=== PATIENT | male | born 1950 | race Caucasian/White ===

== ENCOUNTER 2020-03-04 06:57 | Day surgery (SDC) | payer MEDICARE ==
[2020-02-27 10:02] LABS: BASOPHILS % (AUTO) 0.8 % (0.0-5.0); EOSINOPHILS % (AUTO) 2.9 % (0.0-8.0); HEMATOCRIT 48.4 % (42-54); LYMPHOCYTES % (AUTO) 39.5 % (21.0-51.0); MEAN CORPUSCULAR HEMOGLOBIN 31.9 pg (27.0-33.0); MEAN CORPUSCULAR HGB CONC 33.7 g/dL (32.0-36.0); MEAN CORPUSCULAR VOLUME 94.7 fL (79-99); MONOCYTES % (AUTO) 17.6 % (3.0-13.0); PLATELET COUNT (AUTO) 172 K/uL (130-400); RED BLOOD CELL COUNT(AUTO) 5.11 MIL/uL (4.50-6.20)
[2020-02-27 10:12] LABS: CREATININE 0.9 mg/dL (0.5-1.5); POTASSIUM 4.8 mmol/L (3.5-5.1)
[2020-03-01 11:02] VITALS: BP 156/77
[~2020-03-04] VITALS: Ht 182.9 cm; Wt 95.1 kg
[2020-03-04] VITALS (18 sets, daily range): BP systolic 119–150; BP diastolic 58–79
[2020-03-04] MEDS: CEFAZOLIN SODIUM 1 GM VIAL IVP SCH ×2 (06:00→08:35)
[~2020-03-04 06:57] MED LIST: HYDR25TA PO; LISI10TA24 PO; MONT-39 PO
[2020-03-04] MEDS ORDERED: LACTATED RINGERS 1000ML 1,000 ML IV ONE (07:17)
[2020-03-04] MEDS ORDERED: BUPIVACAINE/PF 0.25% 30ML VIAL IJ ONE (07:55)
[2020-03-04] MEDS ORDERED: PHENYLEPHRINE HCL 10 MG/ML 1ML VIAL IV ONE (08:20)
[2020-03-04] MEDS ORDERED: MIDAZOLAM HCL 1 MG/ML 2ML VIAL ONE (08:20)
[2020-03-04] MEDS ORDERED: SUCCINYLCHOLINE CHLORIDE 20 MG/ML 10 ML VIAL ONE (08:20)
[2020-03-04] MEDS ORDERED: LIDOCAINE PF 100MG/5ML (2%) SYRINGE 5ML ONE (08:20)
[2020-03-04] MEDS ORDERED: FENTANYL CITRATE PF 50 MCG/1 ML 2ML VIAL ONE (08:21)
[2020-03-04] MEDS ORDERED: PROPOFOL 10 MG/ML 20ML VIAL IV ONE (08:21)
[2020-03-04] MEDS ORDERED: ROCURONIUM 10MG/1ML SYR 10 MG/ML ML ONE (08:21)
[2020-03-04] MEDS ORDERED: EPHEDRINE SULFATE 50 MG/ML AMPULE ONE (08:31)
[2020-03-04] MEDS ORDERED: NEOSTIGMINE 5MG/5ML SYR IV ONE (08:59)
[2020-03-04] MEDS ORDERED: GLYCOPYRROLATE 1 MG/5 ML SYRINGE ONE (08:59)
[2020-03-04] MEDS ORDERED: ONDANSETRON 4MG INJ ONE ×2 (09:17→10:00)
[2020-03-04] MEDS ORDERED: MEPERIDINE-PF 25 MG/ML SYG ONE ×2 (09:55→10:04)
== END 2020-03-04 11:30 | disposition home or self-care (01) ==
LOC: DAH 06:57
PROVIDERS: ATTEND Surgery
DX: K40.90 Unilateral inguinal hernia, without obstruction or gangrene, not specified as recurrent (principal); Z20.822 Contact with and (suspected) exposure to COVID-19; J45.909 Unspecified asthma, uncomplicated; I10 Essential (primary) hypertension; Z79.82 Long term (current) use of aspirin; Z90.89 Acquired absence of other organs; Z98.890 Other specified postprocedural states; Z98.49 Cataract extraction status, unspecified eye; Z80.1 Family history of malignant neoplasm of trachea, bronchus and lung
CPT/HCPCS: 36415; 49505; 80048; 85025; 88302; A4215; A4216; A4221; A4222; A4223; A4452; A4600; A4649; A4663; A6260; C1781; C9803; J0330; J0690; J2001; J2175 ×2; J2250; J2370; J2405 ×2; J2704; J2710; J3010; J3490 ×3; J7030; J7120 ×2; U0003

== ENCOUNTER → 2022-12-15 | Outpatient (CLI) | payer MEDICARE ==
[~2022-12-15] MED LIST changes: +IOHEXOL-350 75 ML VIAL IV ONE
== END | disposition home or self-care (01) ==
LOC: RAH 12:43
PROVIDERS: ATTEND Family Medicine
DX: R22.1 Localized swelling, mass and lump, neck (principal); D48.7 Neoplasm of uncertain behavior of other specified sites
CPT/HCPCS: 70492; Q9967

== ENCOUNTER → 2024-10-25 | Outpatient (CLI) | payer MEDICARE ==
[~2024-10-25] MED LIST changes: -IOHEXOL-350 75 ML VIAL IV ONE
--- NOTE | 2024-10-26 00:04 | HMCIMG ---
EXAMINATION: ULTRASOUND OF THE ABDOMEN WITH COLOR DOPPLER. CLINICAL HISTORY: Right upper quadrant pain. COMPARISON: None. TECHNIQUE: Real-time grayscale ultrasound images of the abdomen. In addition, color Doppler is medically necessary to perform in order to evaluate vascularity and blood flow. FINDINGS: Liver: Bulky in caliber, the right hepatic lobe measures 18.1 cm in the craniocaudal dimension. There is increased echogenicity of the hepatic parenchyma. There is no focal hepatic abnormality or intrahepatic biliary ductal dilatation. There is normal spectral Doppler of the main portal vein. Gallbladder: Within normal limits with normal wall thickness (0.20 cm). No hyperemia or pericholecystic free fluid. There is no cholelithiasis. There is a possible polyp that measures 0.3 x 0.8 cm at the fundus. Common bile duct is normal in caliber, measuring 0.3 cm. Spleen is normal in caliber and measures 11.0 x 3.1 x 3.5 cm in craniocaudal, AP and transverse dimensions respectively. No focal lesions. Pancreas: Normal in caliber and echotexture. No calcification or dilated pancreatic duct. The kidneys are normal in caliber, the right kidney measures 11.1 x 6.1 x 5.8 cm and the left kidney measures 9.9 x 6.3 x 5.9 cm in craniocaudal, AP, and transverse dimensions respectively. There is normal renal cortical thickness, and cortical echogenicity. There is no renal calculus. There is mild bilateral pelvic fullness. The proximal, mid, and distal aspects of abdominal aorta are normal in caliber measuring 2.4 cm, 1.8 cm, and 1.6 cm in the AP dimension respectively. Visualized aspects of the inferior vena cava are unremarkable. IMPRESSION: Hepatomegaly with hepatic steatosis. Possible gallbladder polyp. Recommend MRCP. Mild bilateral pelvic fullness. Recommend CT urography. /[place]
== END | disposition home or self-care (01) ==
LOC: RAH 08:05
PROVIDERS: ATTEND Family Medicine
DX: K76.0 Fatty (change of) liver, not elsewhere classified (principal); R50.9 Fever, unspecified; R10.11 Right upper quadrant pain; R63.0 Anorexia
CPT/HCPCS: 76700

== ENCOUNTER → 2024-11-02 | Outpatient (CLI) | payer MEDICARE ==
[~2024-11-02] MED LIST changes: +IOHEXOL 350 MG/ML 100ML INFUS..BTL IV ONE
--- NOTE | 2024-11-03 06:48 | HMCIMG ---
EXAM: CT Abdomen and Pelvis with and without IV contrast CLINICAL HISTORY: Patient presents with hydronephrosis. TECHNIQUE: Axial computed tomography images of the abdomen and pelvis with and without intravenous contrast. CONTRAST: With and without intravenous contrast. COMPARISON: Ultrasound abdomen dated October 25, 2024. FINDINGS: LUNG BASES: The lung bases are clear. No pleural effusion. LIVER: The liver is enlarged measuring 18.2 cm in craniocaudal span. Multiple hypodense lesions in both lobes, largest measuring 1.1 x 1.3 x 1.5 cm in segment II, concerning for hepatic cysts. GALLBLADDER AND BILE DUCTS: The gallbladder is within normal limits. No radio-opaque gallstones. No biliary ductal dilatation. PANCREAS: Unremarkable. SPLEEN: Unremarkable. ADRENAL GLANDS: Unremarkable. KIDNEYS, URETERS, AND BLADDER: A 0.3 cm calculus is present in the right ureterovesicular junction causing upstream mild right hydroureteronephrosis. The right kidney shows significant perinephric fat stranding and appears minimally hypoenhancing compared to the left, likely reflecting sequelae of obstructive uropathy. Fat stranding extends along the right ureter in the retroperitoneum. No excretion of contrast into the right renal pelvicalyceal system on 10-minute delayed images. A 0.6 cm obstructive calculus in the left proximal ureter causes upstream mild hydroureteronephrosis. Two calculi in the lower calyx of the left kidney, largest measuring 0.6 cm. Minimal nonspecific left perinephric fat stranding. The urinary bladder is incompletely distended, limiting evaluation for wall thickening. In the appropriate clinical setting, mild cystitis cannot be excluded. Small dependent calculi in the bladder lumen, largest measuring 0.4 cm. STOMACH AND BOWEL: Unremarkable. No bowel obstruction, enteritis, or colitis. APPENDIX: No CT features of acute appendicitis. PERITONEUM: No free fluid. No free air. LYMPH NODES: No lymphadenopathy. REPRODUCTIVE: The prostate gland is enlarged with median lobe hypertrophy indenting the bladder base. VASCULATURE: No abdominal aortic aneurysm. ABDOMINAL WALL: Fat-containing umbilical hernia. Fat-containing bilateral inguinal hernias. BONES: Lumbar levoscoliosis. Multilevel moderate degenerative changes in the spine. No acute fracture or aggressive osseous lesion. IMPRESSION: Right ureterovesicular junction calculus measuring 0.3 cm causing upstream mild right hydroureteronephrosis with significant perinephric stranding and delayed excretion. Obstructive left proximal ureteric calculus measuring 0.6 cm causing upstream mild left hydroureteronephrosis. Additional non-obstructive left renal calculi, largest measuring 0.6 cm. Small dependent urinary bladder calculi, largest measuring 0.4 cm. The urinary bladder is incompletely distended, limiting evaluation for wall thickening. In the appropriate clinical setting, mild cystitis cannot be excluded. Hepatomegaly with multiple hepatic cysts, largest measuring 1.1 x 1.3 x 1.5 cm in segment II. Prostatomegaly with median lobe hypertrophy indenting the bladder base. Fat-containing umbilical and bilateral inguinal hernias. /[place]
== END | disposition home or self-care (01) ==
LOC: RAH 10:39
PROVIDERS: ATTEND Family Medicine
DX: N13.2 Hydronephrosis with renal and ureteral calculous obstruction (principal); N21.0 Calculus in bladder; K76.89 Other specified diseases of liver; K40.20 Bilateral inguinal hernia, without obstruction or gangrene, not specified as recurrent; N40.0 Benign prostatic hyperplasia without lower urinary tract symptoms; M41.86 Other forms of scoliosis, lumbar region; M47.817 Spondylosis without myelopathy or radiculopathy, lumbosacral region; N13.30 Unspecified hydronephrosis; R10.9 Unspecified abdominal pain
CPT/HCPCS: 74178; Q9967